=== PATIENT | female | born 1955 | race Caucasian/White ===

== ENCOUNTER 2017-07-03 14:39 | Emergency (ER) | payer BC ==
[~2017-07-03] VITALS: Ht 162.6 cm; Wt 89.5 kg
[~2017-07-03 14:39] MED LIST: ALBU6.7H INH; PRED20 PO; PRIL10CA PO; SIMV5TAB32 PO; ZITH250T PO
[2017-07-03] MEDS ORDERED: ZETI10TA5 PO (15:01)
[2017-07-03] MEDS ORDERED: MUPI2OIN TOPICAL (15:01)
[2017-07-03 15:02] VITALS: BP 166/93; PULSE 93; RESP 16; TEMP 98.3; O2SAT 95
--- NOTE | 2017-07-03 15:04 | PD ---
HPI Time Seen by Provider: 14:57 History of Present Illness HPI 62-year-old female presents emergency department for evaluation of a small area of bruising to her left forearm. Patient reports several days prior she was bit by an unknown insect and the area has been pruritic since. She reports that she has been scratching the area and this morning noticed a small area of ecchymosis which caused her concern. Patient denies pain, fever or chills, numbness or tingling or altered sensation in the extremity. Symptom severity is mild. No aggravating or alleviating factors. PFSH Past Medical History High Cholesterol: Yes Tubal Ligation: Yes Past Surgical History Hysterectomy: Yes Tonsillectomy: Yes Social History Alcohol Use: Yes (WINE, TWICE A WEEK) Tobacco Use: No Substance Use: No Allergies-Medications (Allergen,Severity, Reaction): Coded Allergies: No Known Allergies (Verified , 07/03/17) Reported Meds & Prescriptions Reported Meds & Active Scripts Active Reported Mupirocin Topical (Mupirocin) 2 % Oint 1 Applic TOPICAL BID Zetia (Ezetimibe) 10 Mg Tab 10 Mg PO DAILY Review of Systems Except as stated in HPI: all other systems reviewed are Neg General / Constitutional: No: Fever Eyes: No: Visual changes HENT: No: Headaches Cardiovascular: No: Chest Pain or Discomfort Respiratory: No: Shortness of Breath Gastrointestinal: No: Abdominal Pain Genitourinary: No: Dysuria Physical Exam Narrative GENERAL: Well-nourished, well-developed patient. SKIN: Focused skin assessment warm/dry. small healing insect bite with an area of light ecchymosis on forearm likely caused by fingernail trauma and itching. No induration, surrounding cellulitis, lymphangitis. EYES: No scleral icterus. No injection or drainage. NECK: Supple, trachea midline. No JVD or lymphadenopathy. CARDIOVASCULAR: Regular rate and rhythm without murmurs, gallops, or rubs. RESPIRATORY: Breath sounds equal bilaterally. No accessory muscle use. Data Data Last Documented VS Vital Signs Date Time Temp Pulse Resp B/P (MAP) Pulse Ox O2 Delivery O2 Flow Rate FiO2 07/03/17 15:02 98.3 93 16 166/93 (117) 95 MDM Medical Decision Making Medical Screen Exam Complete: Yes Emergency Medical Condition: Yes Differential Diagnosis Insect bite, abscess, cellulitis, Narrative Course 62-year-old female presents emergency department for evaluation of a small area of bruising to her left forearm. Patient reports several days prior she was bit by an unknown insect and the area has been pruritic since. She reports that she has been scratching the area and this morning noticed a small area of ecchymosis which caused her concern. On exam the patient has a small healing insect bite with an area of light ecchymosis likely caused by fingernail trauma and itching. There is no sign of abscess formation or cellulitis. Diagnosis Primary Impression: Ecchymosis of forearm Additional Impression: Insect bite of left forearm Referrals: Primary Care Physician Disposition: 01 DISCHARGE HOME Condition: Stable Dorinda Hernandez Jul 03, 2017 15:04
== END 2017-07-03 15:18 | disposition home or self-care (01) ==
LOC: PHEFT 14:39
DX: R23.3 Spontaneous ecchymoses (principal); S50.862A Insect bite (nonvenomous) of left forearm, initial encounter; W57.XXXA Bitten or stung by nonvenomous insect and other nonvenomous arthropods, initial encounter
CPT/HCPCS: 99281

== ENCOUNTER 2017-07-23 17:40 | Emergency (ER) | payer BC ==
[~2017-07-23] VITALS: Ht 165.1 cm; Wt 89.0 kg
[~2017-07-23 17:40] MED LIST changes: -ALBU6.7H INH; +MUPI2OIN TOPICAL; -PRED20 PO; -PRIL10CA PO; -SIMV5TAB32 PO; +ZETI10TA5 PO; -ZITH250T PO
[2017-07-23 17:43] VITALS: BP 158/89; PULSE 75; RESP 15; TEMP 98.2; O2SAT 98
[2017-07-23] MEDS ORDERED: KETOROLAC TROMETHAMINE 60 MG/2 ML (IM) VIAL IM ONE (18:00)
--- NOTE | 2017-07-23 18:06 | PD ---
HPI Chief Complaint: Musculoskeletal Complaint Time Seen by Provider: 17:48 Travel History International Travel<30 days: No Contact w/Intl Traveler<30days: No Traveled to known affect area: No History of Present Illness HPI 62-year-old female that presents to the ED for evaluation of injury to her right ribs. Per patient she was trying to reach for something underneath the bed and she felt a pop on her right ribs just below her breasts. Per patient pain is reproducible with touch in that area. She states that she felt a pop. She is concerned because this happened about 6 hours ago is not getting better and she is about to go on a trip and wants to make sure she can make the trip. She denies any other injuries. No chest pain on the left side. No prior surgeries. No other medical issues. Per patient her pain is 7 out of 10 and gets worse when she takes deep breaths as well as when she touches the area. Gets worse also when she stands up. Otherwise she has minimal pain. Allergies to morphine. PFSH Past Medical History High Cholesterol: Yes Diminished Hearing: No Immunizations Current: Yes Tetanus Vaccination: Unknown ?: Not Tubal Ligation: Yes Past Surgical History Hysterectomy: Yes Tonsillectomy: Yes Social History Alcohol Use: Yes (WINE, TWICE A WEEK) Tobacco Use: No Substance Use: No Allergies-Medications (Allergen,Severity, Reaction): Coded Allergies: morphine (Verified Allergy, Unknown, 07/23/17) Reported Meds & Prescriptions Reported Meds & Active Scripts Active Reported Zetia (Ezetimibe) 10 Mg Tab 10 Mg PO DAILY Review of Systems Except as stated in HPI: all other systems reviewed are Neg Physical Exam Narrative GENERAL: SKIN: Warm and dry. HEAD: Atraumatic. Normocephalic. EYES: Pupils equal and round. No scleral icterus. No injection or drainage. ENT: No nasal bleeding or discharge. Mucous membranes pink and moist. NECK: Trachea midline. No JVD. CARDIOVASCULAR: Regular rate and rhythm. Patient has reproducible pain just underneath the right breast. Seen with female nurse present. RESPIRATORY: No accessory muscle use. Clear to auscultation. Breath sounds equal bilaterally. GASTROINTESTINAL: Abdomen soft, non-tender, nondistended. Hepatic and splenic margins not palpable. MUSCULOSKELETAL: Extremities without clubbing, cyanosis, or edema. No obvious deformities. Full range of motion of the upper and lower extremities bilaterally. 2+ pulses bilaterally. NEUROLOGICAL: Awake and alert. No obvious cranial nerve deficits. Motor grossly within normal limits. Five out of 5 muscle strength in the arms and legs. Normal speech. PSYCHIATRIC: Appropriate mood and affect; insight and judgment normal. Data Data Last Documented VS Vital Signs Date Time Temp Pulse Resp B/P (MAP) Pulse Ox O2 Delivery O2 Flow Rate FiO2 07/23/17 17:43 98.2 75 15 158/89 (112) 98 Orders Orders Ribs, Bilat(W/Exp Cxr-Min 4vw) (07/23/17 ) Ketorolac Inj (Toradol Inj) (07/23/17 18:00) [facility] Medical Decision Making Medical Screen Exam Complete: Yes Emergency Medical Condition: Yes Medical Record Reviewed: Yes Interpretation(s) X-ray of the right ribs did not show any sign of bony injury or lung Differential Diagnosis Fracture versus contusion versus costochondritis versus muscle tear versus normal exam Narrative Course 62-year-old female that presents to the ED for evaluation of right rib pain. Patient was properly examined and was found to have signs and symptoms consistent with muscle scale pain. X-ray was done. X-ray was negative for acute bony injury. Patient was reassured. She was given Toradol for pain here. Patient will be given a production for Lortab and diclofenac sodium. Told to use as needed. Ice or warm compresses. No heavy lifting. See ED worsening symptoms. Diagnosis Primary Impression: Rib pain on right side Patient Instructions: General Instructions Additional Instructions: Take medications as prescribed. Follow-up with PCP. See ED for any worsening symptoms. Do not drink or drive while taking pain medication. Apply ice or heat as needed for pain Med/Other Pt SpecificInfo: Prescription(s) given Disposition: 01 DISCHARGE HOME Condition: Stable Gelacio Lieberman Jul 23, 2017 18:06
[2017-07-23] MEDS ORDERED: HYDR-3533 PO (18:07)
[2017-07-23] MEDS ORDERED: DICL75TA PO (18:07)
--- NOTE | 2017-07-23 18:52 | RADRPT ---
EXAM DATE/TIME: 07/23/2017 18:03 [facility] COMPARISON: No previous studies available for comparison. INDICATIONS : Right anterior, inferior rib pain. MEDICAL HISTORY : None. SURGICAL HISTORY : None. ENCOUNTER: Initial ACUITY: 1 day PAIN SCORE: 7/10 LOCATION: Right chest FINDINGS: Multiple views of both ribs were performed. There is no evidence of displaced fracture. No destruct marina lesions or areas of periosteal thickening are seen. Expiratory view of the chest is negative for pneumothorax. The mediastinal structures are midline. CONCLUSION: Normal examination for a patient of this age. Russell Pepper MD on July 23, 2017 at 18:49 Board Certified Radiologist. This report was verified electronically.
== END 2017-07-23 19:17 | disposition home or self-care (01) ==
LOC: PHEFT 17:40
DX: R07.81 Pleurodynia (principal)
CPT/HCPCS: 71111; 96372; 99284; J1885